=== PATIENT | female | born 1965 | race American Indian/Alaskan Native ===

== ENCOUNTER 2017-09-05 15:42 | Emergency (ER) | payer OTHER ==
[2017-09-05 16:05] VITALS: BP 150/84; PULSE 100; RESP 18; TEMP 98.8; O2SAT 99
[2017-09-05] MEDS ORDERED: Naproxen 500 MG TAB PO ONE ×2 (16:49→17:19)
--- NOTE | 2017-09-05 17:09 | ED PDOC ---
HPI: General Adult Time Seen by Provider: 09/05/17 16:36 Chief Complaint (Nursing): ENT Problem History Per: Patient Additional Complaint(s): Pt. states she's had sore throat since Monday morning with mild intermittent cough that began today. Denies abdominal pain, N/V/D, hemoptysis, chest pain, SOB, rash. Past Medical History Reviewed: Historical Data, Nursing Documentation, Vital Signs Vital Signs: Last Vital Signs Temp 98.8 F 09/05/17 16:02 Pulse 100 H 09/05/17 16:02 Resp 18 09/05/17 16:02 BP 150/84 09/05/17 16:02 Pulse Ox 99 09/05/17 17:11 - Medical History PMH: HTN - Family History Family History: States: Unknown Family Hx - Home Medications Home Medications: Ambulatory Orders Medication Instructions Recorded Losartan [Cozaar] mg PO DAILY 05/30/16 Ofloxacin Otic 0.3% [Floxin 0.3% 10 drop AD DAILY #1 bottle 05/30/16 Otic Soln] Ibuprofen [Motrin Tab] 600 mg PO Q6 #20 tab 10/19/16 Methocarbamol [Robaxin] 500 mg PO TID #14 tab 10/19/16 traMADol [Ultram] 50 mg PO TID #7 tab 10/19/16 Naproxen [Naprosyn] 500 mg PO BID PRN #10 tab 09/05/17 - Allergies Allergies/Adverse Reactions: Allergies Allergy/AdvReac Type Severity Reaction Status Date / Time lisinopril Allergy ANGIOEDEMA Verified 05/30/16 18:34 Review of Systems ROS Statement: Except As Marked, All Systems Reviewed And Found Negative ENT: Positive for: Throat Pain Respiratory: Positive for: Cough Physical Exam - Physical Exam Appears: Positive for: Well, Non-toxic, No Acute Distress Skin: Positive for: Normal Color, Warm. Negative for: Rash Eye Exam: Positive for: Normal appearance ENT: Positive for: TM Is/Are (non-erythematous, non-bulging b/l), Pharyngeal Erythema. Negative for: Tonsillar Exudate, Tonsillar Swelling Cardiovascular/Chest: Positive for: Regular Rate, Rhythm. Negative for: Tachycardia Respiratory: Positive for: Normal Breath Sounds. Negative for: Crackles, Rales , Rhonchi, Stridor, Respiratory Distress Gastrointestinal/Abdominal: Positive for: Normal Exam, Bowel Sounds, Soft. Negative for: Tenderness Neurologic/Psych: Positive for: Alert, Oriented - ECG O2 Sat by Pulse Oximetry: 99 - Progress ED Course And Treament: Rapid strep, naproxen 500mg PO ordered 1852 Rapid strep: negative. On re-evaluation, pt. reports feeling much better. Disposition - Clinical Impression Clinical Impression: Viral pharyngitis - Patient ED Disposition Is Patient to be Admitted: No - Disposition Referrals: Johnny Ingram [Outside] Disposition: Routine/Home Disposition Time: 18:54 Condition: STABLE Prescriptions: Naproxen [Naprosyn] 500 mg PO BID PRN #10 tab PRN Reason: Pain or fever Instructions: Viral Pharyngitis Forms: [employer] (Ethiopian) Print Language: HEBREW
== END 2017-09-05 19:14 | disposition home or self-care (01) ==
LOC: H.ER 15:42
DX: J02.9 Acute pharyngitis, unspecified (principal); I10 Essential (primary) hypertension

== ENCOUNTER 2017-10-12 11:01 | Emergency (ER) | payer OTHER ==
[2017-10-12 11:04] VITALS: BMI 41.5
[2017-10-12 11:06] VITALS: BP 154/82; PULSE 74; RESP 17; TEMP 98.5; O2SAT 100
--- NOTE | 2017-10-12 11:34 | ED PDOC ---
Lower Extremity Pain/Injury Time Seen by Provider: 10/12/17 11:21 Chief Complaint (Nursing): Lower Extremity Problem/Injury Chief Complaint (Provider): LEft knee pain 1.5 weeks History Per: Patient History/Exam Limitations: no limitations Onset/Duration Of Symptoms: Days Additional Complaint(s): 51 yo female with HTN presents with 1.5 weeks of left knee pain. PT states it started after a bus ride to . PT states she felt like she was in a tight space and unable to move around or straighten her knee and it began feeling stiff. PT states after walking around during the day it became worse. PT states over the last 1.5 weeks is has continued. Pt took 800mg motrin at 6am. PT reports previous knee pain/injury Past Medical History Reviewed: Historical Data, Nursing Documentation, Vital Signs Vital Signs: Last Vital Signs Temp 98.5 F 10/12/17 11:05 Pulse 74 10/12/17 11:05 Resp 17 10/12/17 11:05 BP 154/82 H 10/12/17 11:05 Pulse Ox 100 10/12/17 11:05 - Medical History PMH: HTN - Surgical History Surgical History: No Surg Hx - Family History Family History: States: Unknown Family Hx - Home Medications Home Medications: Ambulatory Orders Medication Instructions Recorded Losartan [Cozaar] mg PO DAILY 05/30/16 Ofloxacin Otic 0.3% [Floxin 0.3% 10 drop AD DAILY #1 bottle 05/30/16 Otic Soln] Ibuprofen [Motrin Tab] 600 mg PO Q6 #20 tab 10/19/16 Methocarbamol [Robaxin] 500 mg PO TID #14 tab 10/19/16 traMADol [Ultram] 50 mg PO TID #7 tab 10/19/16 Naproxen [Naprosyn] 500 mg PO BID PRN #10 tab 09/05/17 - Allergies Allergies/Adverse Reactions: Allergies Allergy/AdvReac Type Severity Reaction Status Date / Time lisinopril Allergy ANGIOEDEMA Verified 10/12/17 11:17 Review of Systems ROS Statement: Except As Marked, All Systems Reviewed And Found Negative Constitutional: Negative for: Fever, Chills Musculoskeletal: Positive for: Other (Left knee pain) Skin: Negative for: Other Physical Exam - Reviewed Nursing Documentation Reviewed: Yes Vital Signs Reviewed: Yes - Physical Exam Appears: Positive for: Well, Non-toxic, No Acute Distress Head Exam: Positive for: ATRAUMATIC, NORMAL INSPECTION, NORMOCEPHALIC Skin: Positive for: Normal Color, Warm, DRY Eye Exam: Positive for: Normal appearance ENT: Positive for: Normal ENT Inspection Neck: Positive for: Normal, Painless ROM Cardiovascular/Chest: Positive for: Regular Rate, Rhythm Respiratory: Positive for: Normal Breath Sounds. Negative for: Accessory Muscle Use, Respiratory Distress Back: Positive for: Normal Inspection Extremity: Positive for: Normal ROM, Swelling (Mild). Negative for: Tenderness , Deformity Neurologic/Psych: Positive for: Alert, Oriented - ECG O2 Sat by Pulse Oximetry: 100 Medical Decision Making Medical Decision Making: x-ray: DJD Disposition - Clinical Impression Clinical Impression: Arthritis - Patient ED Disposition Is Patient to be Admitted: No Counseled Patient/Family Regarding: Diagnosis, Need For Followup - Disposition Referrals: Jesus Otto III, MD [Staff Provider] - Disposition: Routine/Home Disposition Time: 12:44 Condition: GOOD Instructions: Arthritis and Exercise Forms: [employer] (Armenian), [facility] ED School/Work Excuse
--- NOTE | 2017-10-12 12:07 | RAD ---
PROCEDURE: Left Knee Radiographs. HISTORY: Pain. COMPARISON: None. FINDINGS: BONES: No evidence of acute displaced fracture nor dislocation. The osseous structures appear intact. JOINTS: Mild degenerative osteoarthritis most notably affecting the medial and patellofemoral compartments with mild medial joint space narrowing and slight spurring of the medial tibial spine. There are also small posterior patellar osteophytes with small to medium-sized anterior superior patella enthesophyte. JOINT EFFUSION: Suspect trace suprapatellar joint effusion OTHER FINDINGS: None. IMPRESSION: No acute fractures. Mild DJD
== END 2017-10-12 12:58 | disposition home or self-care (01) ==
LOC: H.ER 11:01
DX: M17.12 Unilateral primary osteoarthritis, left knee (principal); I10 Essential (primary) hypertension

== ENCOUNTER 2018-05-10 10:33 | Emergency (ER) | payer OTHER ==
[2018-05-10 10:50] VITALS: O2SAT 98; BMI 41.2
--- NOTE | 2018-05-10 11:11 | ED PDOC ---
Lower Extremity Pain/Injury Additional Complaint(s): Pt seen and examined at bedside with attending. 52F PMH HTN and s/p LEFT knee arthroscopy p/w worsening LLE pain medially. There is associated proximal calf discomfort and she has contacted Dr Thompson and has a follow up appt 05/14/2018. However the lower extremity pain became too much and she came in. She denies any SOB, fevers, chills, but is reporting sharp, stabbing like chest pain b/l yesterday only and has since resolved. <Monet Gregory - Last Filed: 05/10/18 17:20> <Obed Lim III - Last Filed: 05/11/18 12:41> Time Seen by Provider: 05/10/18 11:11 Supervising Attending Note - Attestation: I have personally seen and examined this patient.: Yes I have fully participated in the care of the patient.: Yes I have reviewed all pertinent clinical information, including history, physical exam and plan: Yes - Notes: Notes:: pt seen and knee examined, agree with findings and plan, has appt w Dr Brunson monday. Rx short course analgesics. <Obed Lim III - Last Filed: 05/11/18 12:41> Past Medical History Vital Signs: Last Vital Signs Temp 36.8 C 05/10/18 10:49 Pulse 74 05/10/18 10:49 Resp 16 05/10/18 10:49 BP 145/84 05/10/18 10:49 Pulse Ox 98 05/10/18 10:49 - Medical History PMH: HTN - Surgical History Surgical History: Tonsillectomy - Family History Family History: States: Unknown Family Hx <Monet Gregory - Last Filed: 05/10/18 17:20> Vital Signs: Last Vital Signs Temp 98.0 F 05/10/18 14:06 Pulse 82 05/10/18 14:06 Resp 18 05/10/18 14:06 BP 132/74 05/10/18 14:06 Pulse Ox 98 05/10/18 17:20 <Obed Lim III - Last Filed: 05/11/18 12:41> - Home Medications Home Medications: Ambulatory Orders Medication Instructions Recorded Losartan/Hydrochlorothiazide 1 tab PO DAILY 01/05/18 [Losartan-Hctz 100-25 mg Tab] RX: Fexofenadine HCl 180 mg PO DAILY 01/05/18 RX: traMADol [Ultram] 50 mg PO Q6H PRN #5 tab 05/10/18 - Allergies Allergies/Adverse Reactions: Allergies Allergy/AdvReac Type Severity Reaction Status Date / Time lisinopril Allergy Severe ANAPHYLAXIS Verified 05/10/18 11:12 Wells Criteria for PE - Wells Criteria for Pulmonary Embolism Clinical Signs and Symptoms of DVT: Yes P.E is #1 Diagnosis, or Equally Likely: Yes Heart Rate >100: No Immobilization at least 3 days;Surgery previous 4 weeks: No Previous, objectively diagnosed PE or DVT: No Hemoptysis: No Malignancy w/treatment within 6 months, or palliative: No Total Score: 4 <Monet Gregory - Last Filed: 05/10/18 17:20> Review of Systems ROS Statement: Except As Marked, All Systems Reviewed And Found Negative Constitutional: Negative for: Fever, Chills Cardiovascular: Positive for: Chest Pain (sharp, transient x1 day, not experiencing currently) Respiratory: Negative for: Cough, Shortness of Breath Musculoskeletal: Positive for: Leg Pain (LLE medial proximal tibia/distal femur and knee pain) <Monet Gregory - Last Filed: 05/10/18 17:20> Physical Exam - Reviewed Vital Signs Reviewed: Yes - Physical Exam Appears: Positive for: Well, Non-toxic, No Acute Distress Head Exam: Positive for: ATRAUMATIC Skin: Positive for: Normal Color, Warm, Dry Eye Exam: Positive for: Normal appearance ENT: Positive for: Normal ENT Inspection Neck: Positive for: Supple Cardiovascular/Chest: Positive for: Regular Rate, Rhythm. Negative for: Murmur Respiratory: Positive for: Normal Breath Sounds. Negative for: Crackles, Rales, Wheezing Gastrointestinal/Abdominal: Positive for: Normal Exam, Bowel Sounds, Soft. Negative for: Tenderness Extremity: Positive for: Tenderness (at LEFT proximal lower leg, includes medial knee and distal medial femur). Negative for: Pedal Edema, Calf Tenderness, Swelling Neurologic/Psych: Positive for: Alert, Oriented <Monet Gregory - Last Filed: 05/10/18 17:20> - Laboratory Results Result Diagrams: 05/10/18 12:55 05/10/18 12:55 - ECG O2 Sat by Pulse Oximetry: 98 <SangMonet hutton - Last Filed: 05/10/18 17:20> - Laboratory Results Result Diagrams: 05/10/18 12:55 05/10/18 12:55 <Obed Lim III - Last Filed: 05/11/18 12:41> Medical Decision Making Medical Decision Making: Initial history was limited to LLE complaints, but later found to also be having chest discomfort. So, will r/o DVT/PNA/PE/cardiac. - EKG, CXR, LLE venous duplex - CBC, CMP, D-dimer, Mg, Troponin - U preg Upreg is negative, CXR no active disease (radiologist) CBC mild anemia, no leukocytosis CMP WNL, Troponin is negative, Mg wnl D-dimer: 2689 1345 Duplex of LLE negative for DVT (prelim from [place]) 1505 BNP is 36.7 1615 CTA chest is being read as no PE. [address] Thompson and he is agreeable to discharge patient with Tramadol and will see her Monday05/14/18. <SangbrennenMonet - Last Filed: 05/10/18 17:20> Disposition - Patient ED Disposition Is Patient to be Admitted: No Counseled Patient/Family Regarding: Diagnosis, Rx Given - Disposition Disposition: Routine/Home Disposition Time: 16:21 <Monet Gregory - Last Filed: 05/10/18 17:20> <Obed Lim III - Last Filed: 05/11/18 12:41> - Clinical Impression Clinical Impression: Chest pain, Left knee pain - Disposition Referrals: Yasemin Brunson MD [Staff Provider] - 05/14/18 Condition: IMPROVED Additional Instructions: Follow up with Dr Thompson Take medication as prescribed Return for worsening symptoms, Shortness of breath, chest pain Prescriptions: RX: traMADol [Ultram] 50 mg PO Q6H PRN #5 tab PRN Reason: Pain, Moderate (4-7) Instructions: Chest Pain, Knee Pain (DC) Forms: [employer] (German), [facility] ED School/Work Excuse
[2018-05-10 13:07] LABS: BASO # 0.1 K/uL (0.0-0.2); BASO % 1.4 % (0.0-2.0); EOS # 0.1 K/uL (0.0-0.7); EOS % 0.9 % (0.0-4.0); HEMOGLOBIN 11.6 g/dL (12.0-16.0); LYMPH # 2.4 K/uL (1.0-4.3); LYMPH % 39.5 % (20.0-40.0); MEAN CORPUSCULAR HEMOGLOBIN 26.9 pg (27.0-31.0); MEAN PLATELET VOLUME 9.3 fl (7.2-11.7); MONO # 0.4 K/uL (0.0-0.8); MONO % 7.5 % (0.0-10.0); NEUT % 50.7 % (50.0-75.0); NRBC % 0.1 % (0.0-0.0); RBC 4.31 Mil/uL (3.80-5.20); RED CELL DISTRIBUTION WIDTH 14.4 % (11.5-14.5)
--- NOTE | 2018-05-10 13:08 | RAD ---
Date of service: 05/10/2018 HISTORY: chest pain COMPARISON: No prior. TECHNIQUE: Chest PA and lateral FINDINGS: LUNGS: No active pulmonary disease. PLEURA: No significant pleural effusion identified. No pneumothorax apparent. CARDIOVASCULAR: No aortic atherosclerotic calcification present. Normal cardiac size. No pulmonary vascular congestion. OSSEOUS STRUCTURES: No significant abnormalities. VISUALIZED UPPER ABDOMEN: Normal. OTHER FINDINGS: None. IMPRESSION: No active disease.
[2018-05-10 13:27] LABS: ALB/GLOB RATIO 0.9 (1.0-2.1); ALT/SGPT 25 U/L (9-52); AST/SGOT 26 U/L (14-36); BLOOD UREA NITROGEN 16 mg/dl (7-17); CALCIUM 9.7 mg/dL (8.4-10.2); GFR NON-AFRICAN AMERICAN 58
[2018-05-10] MEDS ORDERED: Iodixanol 320 MG/ML 100 ML BOTTLE IV ONE (13:49)
[2018-05-10] MEDS ORDERED: Sodium Chloride 0.9% 50 ML IV ONE (13:49)
--- NOTE | 2018-05-10 14:00 | US ---
Date of service: 05/10/2018 HISTORY: LLE pain s/p Lt knee arthroscopy. PRIORS: None. FINDINGS: 2-D, color and duplex Doppler analysis of the lower extremity venous circulation using routine protocol from the femoral veins through the popliteal veins. Venous compressibility: Normal. Flow and augmentation patterns: Normal. Visualized veins upper third of calf: Normal. Steen cyst: None. IMPRESSION: No sonographic or Doppler evidence for DVT in left lower extremity.
[2018-05-10 14:07] VITALS: BP 132/74; PULSE 82; RESP 18; TEMP 98
--- NOTE | 2018-05-10 14:17 | CARD ---
APPROVED REPORT Date of service: 05/10/2018 EKG Measurement Heart [id number] <Conclusion> Normal sinus rhythm Minimal voltage criteria for LVH, may be normal variant Nonspecific ST and T wave abnormality Abnormal ECG
--- NOTE | 2018-05-10 16:10 | CT ---
Date of service: 05/10/2018 PROCEDURE: CT Chest with contrast (Pulmonary Angiogram) HISTORY: chest pain, elevated d-dimer, LLE pain COMPARISON: None available. TECHNIQUE: Axial computed tomography images were obtained of the chest in the pulmonary arterial phase of enhancement. Coronal and sagittal reformatted images were created and reviewed. Intravenous contrast dose: 100 mL of Visipaque 320 intravenously. Radiation dose: Total exam DLP = 373.07 mGy-cm. This CT exam was performed using one or more of the following dose reduction techniques: Automated exposure control, adjustment of the mA and/or kV according to patient size, and/or use of iterative reconstruction technique. FINDINGS: PULMONARY ARTERIES: Suboptimal opacification of the peripheral subsegmental pulmonary arteries. No evidence of central pulmonary embolus. The main pulmonary artery is normal in caliber. AORTA: No acute findings. No thoracic aortic aneurysm. The ascending thoracic aorta is slightly ectatic measures up to 3.7 centimeter in the transverse diameter. No aortic atherosclerotic calcification or mural plaque present. LUNGS: Possible mild pulmonary vascular congestion. No nodule, mass or pulmonary consolidation. PLEURAL SPACES: Unremarkable. No effusion or pneumothorax. HEART: The heart is mildly enlarged. No evidence of pericardial effusion. LYMPH NODES: No lymphadenopathy. BONES, CHEST WALL: Unremarkable. No fracture or destructive lesion OTHER FINDINGS: Unremarkable. IMPRESSION: No evidence of central pulmonary embolus. The assessment of small peripheral subsegmental pulmonary arteries is suboptimal in this study. Mild cardiomegaly and possible mild pulmonary vascular congestion.
== END 2018-05-10 17:31 | disposition home or self-care (01) ==
LOC: H.ER 10:33
DX: R07.89 Other chest pain (principal); M25.562 Pain in left knee
CPT/HCPCS: 71046; 71275; 80053; 81025; 83735; 83880; 84484; 85025; 85378; 93005; 93971; 99284; Q9967